=== PATIENT | male | born 1990 | race African-American/Black ===

== ENCOUNTER 2017-02-12 20:29 | Emergency (ER) | payer SELFPAY ==
[2017-02-12 20:05] LABS: INFLUENZA A NEG (NEG); INFLUENZA B NEG (NEG)
== END 2017-02-12 21:25 | disposition home or self-care (01) ==
LOC: SED 20:29
PROVIDERS: Physician Assistant
DX: J02.0 Streptococcal pharyngitis (principal); F17.200 Nicotine dependence, unspecified, uncomplicated
CPT/HCPCS: 87804; 87880; 99283

== ENCOUNTER → 2017-03-01 20:50 | Emergency (ER) | payer BC | END | disposition home or self-care (01) | LOC: SED 20:50 | DX: J02.9 Acute pharyngitis, unspecified (principal) | CPT/HCPCS: 87651; 99282 ==